=== PATIENT | male | born 1935 | race Two or more races ===

== ENCOUNTER 2016-08-08 15:08 | Emergency (ER) | payer MEDICARE, OTHER ==
[~2016-08-08] VITALS: Ht 170.2 cm; Wt 72.6 kg
[~2016-08-08 15:08] MED LIST: ALEN70TA45 PO; ASPI-605 PO; ATOR40TA PO; CALC500T51 PO; CHOL20004 PO; FLUR15CA14 PO; FOLI1TAB16 PO; ISOS30TA6 PO; METO25TA6 PO; SENN8.6T22 PO; VALS1TAB4 PO
[2016-08-08 15:12] VITALS: BP 135/75
[2016-08-08] MEDS ORDERED: IBUPROFEN 400 MG TABLET PO ONE (16:00)
[2016-08-08] MEDS ORDERED: IBUPROFEN 400 MG TABLET ONE (16:01)
[2016-08-08] MEDS ORDERED: METO-302 PO (16:15)
[2016-08-08] MEDS ORDERED: TAMS-12 PO (16:15)
[2016-08-08] MEDS ORDERED: ERGO50003 PO (16:15)
[2016-08-08] MEDS ORDERED: CALC-866 PO (16:15)
[2016-08-08 16:34] LABS: APPEARANCE,URINE Clear (CLEAR); BILIRUBIN,URINE SMALL (NEGATIVE); BLOOD, URINE Trace-lysed Ery/uL (NEGATIVE); COLOR,URINE Dark (YELLOW); KETONES,URINE 15 (NEGATIVE); LEUKOCYTE ESTERASE ,URINE Trace (NEGATIVE); NITRITE, URINE Negative (NEGATIVE); PROTEIN,URINE 30 mg/dl (NEGATIVE); UGLUCOSE Negative (NEGATIVE); UROBILINOGEN,URINE 0.2 EU/dL (0.2)
[2016-08-08 16:48] LABS: ADD URINE CULTURE NO; BACTERIA,URINE Few /HPF (None Seen); MUCUS,URINE Many /LPF (None Seen); SQUAMOUS EPITHELIAL CELL,UR Few /HPF (None Seen)
== END 2016-08-08 17:32 | disposition home or self-care (01) ==
LOC: ER 15:10
DX: M54.5 Low back pain (principal); I10 Essential (primary) hypertension; E78.00 Pure hypercholesterolemia, unspecified; M19.90 Unspecified osteoarthritis, unspecified site; Z95.1 Presence of aortocoronary bypass graft; Z79.82 Long term (current) use of aspirin
CPT/HCPCS: 81000-TC; A4606; Z7610